=== PATIENT | female | born 1955 | race Caucasian/White ===

== ENCOUNTER → 2018-01-17 | Outpatient (CLI) | payer BC ==
[~2018-01-17] MED LIST: CA C1TAB9 PO; FISH OIL1 CAP PO; HCTZ25 PO; MULT-820 PO; OLM20 PO
--- NOTE | 2018-01-17 15:43 | RADIOLOGY IMAGING REPORT ---
FAC[facility]: [facility] PATIENT NAME: CRISTIANE DIOR : [id number] MR: [id number] V: [id number] EXAM DATE: [id number] ORDERING PHYSICIAN: DEANA HIGGINBOTHAM TECHNOLOGIST: Agatha Crespo PROCEDURE:BILATERAL DIGITAL SCREENING MAMMOGRAM WITH CAD ASSISTED INTERPRETATION & 3D TOMOSYNTHESIS COMPARISON:Prior mammograms 11/28/16, 06/08/15, 04/13/14, 02/05/13, 02/01/12, 01/24/11. INDICATIONS:SCREENING FINDINGS: A small amount of fibroglandular tissue is seen throughout the breasts. The parenchymal pattern has remained stable allowing for difference in mammographic technique & patient positioning. There is no evidence of malignant appearing mass, malignant appearing calcifications or other secondary sign of malignancy in either breast. DIAGNOSTIC CATEGORY 1--NEGATIVE. RECOMMENDATIONS: ROUTINE MAMMOGRAM AND CLINICAL EVALUATION. IMPRESSION: BIRADS 1: Negative. No significant abnormality is seen. Dictated by: Tri Singh M.D. on 01/17/2018 at 14:55 Transcribed by: AIDEE on 01/17/2018 at 15:06 Approved by: Tri Singh M.D. on 01/17/2018 at 15:42 [facility]
== END ==
LOC: MAMO 02:22
PROVIDERS: ATTEND Nurse Practitioner Family
DX: Z12.31 Encounter for screening mammogram for malignant neoplasm of breast (principal)
CPT/HCPCS: 77063; 77067